=== PATIENT | female | born 1965 | race African-American/Black ===

== ENCOUNTER 2020-05-29 18:39 | Observation (INO) ==
[2020-05-29 21:23] LABS: Basophils % 0.4 % (0.0-0.8); Eosinophils # 0.1 10*3/uL (0.0-0.87); Hematocrit 36.1 VOL% (35.7-47.0); Hemoglobin 11.4 GM/DL (12.0-16.0); Immature Granulocytes % 0.4 %; Immature Granulocytes Absolute 0.02 #; Lymphocytes # 2.5 10*3/uL (1.4-4.0); Lymphocytes % 49.9 % (21.3-54.2); Mean Corpuscular HGB Conc 31.6 GM/DL (32-36); Mean Platelet Volume 11.1 FL (9.6-12.0); Monocytes % 7.7 % (1.7-12.7); Neutrophils % 39.6 % (38.7-73.9); Platelet Count 165 T/CUMM (130-400); Red Cell Distribution Width 14.1 % (9.3-17.3); White Blood Count 4.9 T/CUMM (4-12)
[2020-05-29] MEDS ORDERED: FUROSEMIDE 100 MG/10 ML VIAL IV STA (21:35)
[2020-05-29 22:07] LABS: Alanine Aminotransferase 33 U/L (13-56); Albumin 3.5 G/DL (3.4-5.0); Alkaline Phosphatase 80 U/L (45-117); Aspartate Amino Transferase 36 U/L (0-37); Bilirubin,Total < 0.39 MG/DL (0.2-1.0); Blood Urea Nitrogen 10 MG/DL (7-18); Calcium 8.7 MG/DL (8.5-10.1); Estimated Glom Filtration Rate 103 ML/MIN; Glucose 99 MG/DL (74-106); Osmolality,Calculated 275.5 MOS/KG (273-304); Total Protein 8.3 G/DL (6.4-8.3)
[2020-05-29] MEDS ORDERED: GLUCAGON 1 MG VIAL IM PRN ×2 (22:20)
[2020-05-29] MEDS ORDERED: BISACODYL 5 MG TABLET PO PRN (22:20)
[2020-05-29] MEDS ORDERED: hydrALAZINE 20 MG/1 ML VIAL IV PRN (22:20)
[2020-05-29] MEDS ORDERED: diphenhydrAMINE CAP 25 MG CAPSULE PO PRN (22:20)
[2020-05-29] MEDS ORDERED: ZALEPLON 5 MG CAPSULE PO PRN (22:20)
[2020-05-29] MEDS ORDERED: ALUMINUM/MAGNES/SIMETH MAX STR 30 ML UDCUP PO PRN (22:20)
[2020-05-29] MEDS ORDERED: ONDANSETRON 4 MG/2 ML VIAL IV PRN (22:20)
[2020-05-29] MEDS ORDERED: ACETAMINOPHEN 325 MG TABLET PO PRN (22:20)
[2020-05-29] MEDS ORDERED: NICOTINE 21 MG/24 HR PATCH TRANSDERM PRN (22:20)
[2020-05-29] MEDS ORDERED: guaiFENesin/DM ER 600-30 MG TABLET PO PRN (22:20)
[2020-05-29] MEDS ORDERED: SIMETHICONE CHEW 125 MG TABLET PO PRN (22:20)
[2020-05-29] MEDS ORDERED: DEXTROSE 50% 25 GM/50 ML VIAL IV PRN ×2 (22:20)
[2020-05-29] MEDS: carvediloL 6.25 MG TABLET PO SCH (23:58)
[2020-05-30] MEDS: ALBUTEROL 2.5 MG/3 ML NEB RESP TX SCH ×2 (01:17→07:03)
[2020-05-30 06:35] LABS: Basophils % 0.4 % (0.0-0.8); Eosinophils # 0.1 10*3/uL (0.0-0.87); Eosinophils % 1.6 % (0.00-10.9); Hematocrit 34.2 VOL% (35.7-47.0); Hemoglobin 10.8 GM/DL (12.0-16.0); Immature Granulocytes % 0.4 %; Immature Granulocytes Absolute 0.02 #; Lymphocytes # 2.1 10*3/uL (1.4-4.0); Lymphocytes % 42.5 % (21.3-54.2); Mean Corpuscular HGB Conc 31.6 GM/DL (32-36); Mean Corpuscular Volume 87.7 FL (87-102); Mean Platelet Volume 11.1 FL (9.6-12.0); Monocytes % 8.9 % (1.7-12.7); Neutrophils % 46.2 % (38.7-73.9); Platelet Count 157 T/CUMM (130-400); Red Cell Distribution Width 14.2 % (9.3-17.3); White Blood Count 4.9 T/CUMM (4-12)
[2020-05-30 06:53] LABS: Calcium 8.6 MG/DL (8.5-10.1); Osmolality,Calculated 275.5 MOS/KG (273-304)
[2020-05-30] MEDS ORDERED: LEVOTHYROXINE 150 MCG TABLET PO SCH (07:00)
[2020-05-30 07:02] LABS: Eosinophils 3 % (0-10); Lymphocytes 31 % (20-55); Platelet Estimate Normal; Segmented Neutrophils 56 % (50-85); Total Cells Counted 100
[2020-05-30 07:04] LABS: Hypochromasia Slight
[2020-05-30] MEDS ORDERED: FUROSEMIDE 40 MG/4 ML VIAL IV SCH (08:00)
[2020-05-30 08:22] LABS: Ferritin 384.9 ng/ml (8-252)
[2020-05-30 08:29] VITALS: BP 137/72
[2020-05-30] MEDS ORDERED: ENOXAPARIN 40 MG/0.4 ML SYRINGE SUBCUT SCH (09:00)
[2020-05-30] MEDS ORDERED: GABAPENTIN 100 MG CAPSULE PO SCH (09:00)
[2020-05-30] MEDS ORDERED: LOSARTAN 50 MG TABLET PO SCH (09:00)
[2020-05-30] MEDS ORDERED: CETIRIZINE 10 MG TABLET PO SCH (09:00)
[2020-05-30] MEDS ORDERED: PANTOPRAZOLE 40 MG TABLET PO SCH (09:00)
[2020-05-30] MEDS ORDERED: OXYBUTYNIN 5 MG TABLET PO SCH (09:00)
[2020-05-30] MEDS: carvediloL 6.25 MG TABLET PO SCH (11:05)
[2020-05-30] MEDS ORDERED: ZINC GLUCONATE 50 MG TABLET PO ONE (11:14)
[2020-05-30] MEDS ORDERED: DEXAMETHASONE 4 MG/1 ML VIAL IV ONE (11:18)
[2020-05-30] MEDS: INSULIN LISPRO 100 UNIT/ML SUBCUT SCH ×2 (11:23→12:35)
[2020-05-30] MEDS ORDERED: ASCORBIC ACID 500 MG TABLET PO SCH (11:30)
== END 2020-05-30 13:23 | disposition home or self-care (01) ==
LOC: N.ED 18:39 → N.EDINP 18:39 → N.TELES 23:41
PROVIDERS: ADMIT Internal Medicine Geriatric Medicine; ATTEND Internal Medicine Geriatric Medicine

== ENCOUNTER 2022-04-27 16:18 | Observation (INO) ==
[2022-04-27 16:40] LABS: Basophils % 0.3 % (0.0-0.8); Eosinophils # 0.2 10*3/uL (0.0-0.87); Eosinophils % 2.9 % (0.00-10.9); Hematocrit 32.3 VOL% (35.7-47.0); Hemoglobin 9.9 GM/DL (12.0-16.0); Immature Granulocytes % 0.3 %; Immature Granulocytes Absolute 0.02 #; Lymphocytes # 3.3 10*3/uL (1.4-4.0); Mean Corpuscular HGB Conc 30.7 GM/DL (32-36); Mean Corpuscular Volume 93.6 FL (87-102); Mean Platelet Volume 10.6 FL (9.6-12.0); Monocytes # 0.4 10*3/uL (0.11-0.8); Monocytes % 6.4 % (1.7-12.7); Neutrophils % 43.1 % (38.7-73.9); Platelet Count 187 T/CUMM (130-400); Red Blood Count 3.45 MC/CUMM (3.8-5.5); Red Cell Distribution Width 13.6 % (9.3-17.3); White Blood Count 6.9 T/CUMM (4-12)
[2022-04-27 16:50] LABS: INR 0.9; PT Patient Result 9.8 SECS (10.1-12.1)
[2022-04-27 17:02] LABS: Alanine Aminotransferase 23 U/L (13-56); Albumin 3.4 G/DL (3.4-5.0); Alkaline Phosphatase 62 U/L (45-117); Aspartate Amino Transferase 13 U/L (0-37); Bilirubin,Total < 0.39 MG/DL (0.20-1.00); Blood Urea Nitrogen 20 MG/DL (7-18); Carbon Dioxide 25 MMOL/L (21-32); Chloride 107 MMOL/L (98-107); Glucose 127 MG/DL (74-106); Potassium 3.4 MMOL/L (3.5-5.1); Sodium 136 MMOL/L (136-145); Total Protein 7.6 G/DL (6.4-8.2)
[2022-04-27] MEDS ORDERED: methylPREDNISolone SOD SUC 125 MG/2 ML VIAL IV STA (18:17)
[2022-04-27] MEDS ORDERED: ONDANSETRON 4 MG/2 ML VIAL IV STA (18:17)
[2022-04-27] MEDS ORDERED: ALBUTEROL/IPRATROPIUM 3 ML NEB RESP TX STA (18:17)
[2022-04-27] MEDS ORDERED: POTASSIUM CHLORIDE 20 MEQ TABLET PO STA (18:18)
[2022-04-27] MEDS ORDERED: MAGNESIUM CHLORIDE 64 MG TABLET PO STA (18:42)
[2022-04-27] MEDS ORDERED: cefTRIAXone 1,000 MG in SODIUM CHLORIDE 0.9% 100 ML IV STA (19:13)
[2022-04-27] MEDS ORDERED: ALBUTEROL NEB SOLN 5 MG/ML 20 ML/BOTTLE CONT NEB STA (20:19)
[2022-04-27] MEDS ORDERED: ENOXAPARIN 100 MG/ML SYRINGE SUBCUT STA (22:09)
[2022-04-27 23:26] LABS: ABG Base Excess -6.1 MMOL/L (-2.5-2.5); ABG HCO3 19.4 MMOL/L (20-26); ABG Oxygen Saturation 98.5 % (95-100); ABG PH 7.403 (7.35-7.45); ABG TCO2 15.7 MMOL/L (23-27)
[2022-04-28] MEDS ORDERED: NICOTINE 21 MG/24 HR PATCH TRANSDERM PRN (00:13)
[2022-04-28] MEDS ORDERED: hydrALAZINE 20 MG/1 ML VIAL IV PRN (00:13)
[2022-04-28] MEDS ORDERED: MORPHINE 2 MG/1 ML SYRINGE IV PRN (00:13)
[2022-04-28] MEDS ORDERED: ZALEPLON 5 MG CAPSULE PO PRN (00:13)
[2022-04-28] MEDS ORDERED: ACETAMINOPHEN 325 MG TABLET PO PRN (00:13)
[2022-04-28] MEDS ORDERED: diphenhydrAMINE CAP 25 MG CAPSULE PO PRN (00:13)
[2022-04-28] MEDS ORDERED: guaiFENesin/DM ER 600-30 MG TABLET PO PRN (00:13)
[2022-04-28] MEDS ORDERED: ONDANSETRON 4 MG/2 ML VIAL IV PRN (00:13)
[2022-04-28] MEDS ORDERED: ALBUTEROL/IPRATROPIUM 3 ML NEB RESP TX SCH (01:00)
[2022-04-28] MEDS ORDERED: PANTOPRAZOLE 40 MG VIAL IV ONE (01:30)
[2022-04-28 05:09] LABS: Basophils % 0.2 % (0.0-0.8); Hematocrit 30.6 VOL% (35.7-47.0); Hemoglobin 9.4 GM/DL (12.0-16.0); Immature Granulocytes % 0.5 %; Immature Granulocytes Absolute 0.03 #; Lymphocytes # 1.1 10*3/uL (1.4-4.0); Lymphocytes % 17.9 % (21.3-54.2); Mean Corpuscular HGB Conc 30.7 GM/DL (32-36); Mean Corpuscular Volume 91.1 FL (87-102); Mean Platelet Volume 10.7 FL (9.6-12.0); Monocytes # 0.1 10*3/uL (0.11-0.8); Monocytes % 1.1 % (1.7-12.7); Neutrophils % 80.3 % (38.7-73.9); Platelet Count 182 T/CUMM (130-400); Red Blood Count 3.36 MC/CUMM (3.8-5.5); Red Cell Distribution Width 13.6 % (9.3-17.3); White Blood Count 6.2 T/CUMM (4-12)
[2022-04-28 05:42] LABS: Calcium 9.1 MG/DL (8.5-10.1); Osmolality,Calculated 283.8 MOS/KG (273-304)
[2022-04-28] MEDS ORDERED: BENZONATATE 100 MG CAPSULE PO PRN (08:51)
[2022-04-28] MEDS ORDERED: ONDANSETRON ODT 4 MG TABLET PO PRN (08:51)
[2022-04-28] MEDS ORDERED: FLUTICASONE 50 MCG NASAL SPRAY 16 GM BOTTLE BOTH NARES SCH (09:00)
[2022-04-28] MEDS ORDERED: PANTOPRAZOLE 40 MG TABLET PO SCH (09:00)
[2022-04-28] MEDS ORDERED: hydroCHLOROthiazide 25 MG TABLET PO SCH (09:00)
[2022-04-28] MEDS ORDERED: metFORMIN 500 MG TABLET PO SCH (09:00)
[2022-04-28] MEDS ORDERED: GABAPENTIN 100 MG CAPSULE PO SCH (09:00)
[2022-04-28] MEDS ORDERED: OXYBUTYNIN XL 5 MG TABLET PO SCH (09:00)
[2022-04-28] MEDS ORDERED: LEVOTHYROXINE 150 MCG TABLET PO SCH (09:00)
[2022-04-28] MEDS ORDERED: CHOLECALCIFEROL 1,000 UNIT TABLET PO SCH (09:00)
[2022-04-28] MEDS ORDERED: PHENAZOPYRIDINE 95 MG TABLET PO SCH (09:00)
[2022-04-28] MEDS ORDERED: FERROUS SULFATE 325 MG TABLET PO SCH (09:00)
[2022-04-28] MEDS ORDERED: LOSARTAN 50 MG TABLET PO SCH (09:00)
[2022-04-28] MEDS ORDERED: predniSONE 20 MG TABLET PO SCH (09:00)
[2022-04-28] MEDS ORDERED: ASPIRIN EC 81 MG TABLET PO SCH (09:00)
[2022-04-28] MEDS ORDERED: DOCUSATE SODIUM 100 MG/10 ML UDCUP PO SCH (09:00)
[2022-04-28] MEDS ORDERED: OSELTAMIVIR 75 MG CAPSULE PO SCH (09:00)
[2022-04-28] MEDS ORDERED: METOPROLOL TARTRATE 25 MG TABLET PO SCH (09:00)
[2022-04-28] MEDS ORDERED: PANTOPRAZOLE 40 MG VIAL IV SCH (09:00)
[2022-04-28] MEDS: INSULIN LISPRO 100 UNIT/ML SUBCUT SCH ×2 (09:37→13:10)
[2022-04-28] MEDS ORDERED: DEXTROSE 10% 250 ML BAG IV PRN (09:41)
[2022-04-28 12:07] VITALS: BP 157/71
[2022-04-28] MEDS ORDERED: INFLUENZA VIRUS VACCINE 0.5 ML SYRINGE IM ONE (12:08)
[2022-04-28] MEDS ORDERED: cefTRIAXone 1,000 MG in SODIUM CHLORIDE 0.9% 100 ML IV SCH (20:00)
[2022-04-28] MEDS ORDERED: METOPROLOL TARTRATE 50 MG TABLET PO SCH (21:00)
== END 2022-04-28 13:11 | disposition home or self-care (01) ==
LOC: N.ED 16:18 → N.EDINP 16:18 → N.2W 04-28 03:36
PROVIDERS: ADMIT Internal Medicine; ATTEND Internal Medicine